=== PATIENT | male | born 1995 | race Two or more races ===

== ENCOUNTER 2016-09-04 14:26 | Emergency (ER) | payer OTHER ==
[~2016-09-04] VITALS: Ht 185.4 cm; Wt 66.8 kg
[2016-09-04 16:38] VITALS: BP 115/87
== END 2016-09-04 16:45 | disposition home or self-care (01) ==
LOC: EMS 14:29
DX: H61.21 Impacted cerumen, right ear (principal)
CPT/HCPCS: 99282

== ENCOUNTER 2016-12-14 16:22 | Emergency (ER) | payer OTHER ==
[~2016-12-14] VITALS: Ht 185.4 cm; Wt 65.9 kg
[2016-12-14 16:36] VITALS: BP 118/75
[2016-12-14] MEDS ORDERED: HYDROGEN PEROXIDE 118 ML SOLUTION TP ONE (17:00)
== END 2016-12-14 17:34 | disposition home or self-care (01) ==
LOC: EMS 16:25
DX: H61.21 Impacted cerumen, right ear (principal)
CPT/HCPCS: 69209; 99282

== ENCOUNTER → 2018-05-31 | Emergency (ER) | payer MEDICAID, OTHER ==
[~2018-05-31] VITALS: Ht 188 cm; Wt 66.8 kg
[~2018-05-31] MED LIST: FLUORESCEIN SODIUM 1 MG STRIP ONE; PROPARACAINE HCL 0.5% 15 ML OPHTHALMIC SOLUTION ONE
[2018-05-31 13:45] VITALS: BP 138/93
== END | disposition home or self-care (01) ==
LOC: EMS 13:41
DX: H43.392 Other vitreous opacities, left eye (principal)

== ENCOUNTER 2019-03-02 18:34 | Emergency (ER) | payer MEDICAID ==
[~2019-03-02] VITALS: Ht 177.8 cm; Wt 68.2 kg
[2019-03-02] MEDS ORDERED: IBUPROFEN 800 MG TABLET PO ONE (19:45)
[2019-03-02] MEDS ORDERED: AMOX TR/POT CLAV 875 MG/125 MG TABLET PO ONE (19:45)
[2019-03-02 20:35] VITALS: BP 148/79
== END 2019-03-02 20:40 | disposition home or self-care (01) ==
LOC: EMS 19:16
DX: H66.91 Otitis media, unspecified, right ear (principal)

== ENCOUNTER 2021-01-16 14:15 | Emergency (ER) | payer MEDICAID ==
[~2021-01-16] VITALS: Ht 185.4 cm; Wt 67.3 kg
[2021-01-16] MEDS ORDERED: ACETIC ACID 2% 15 ML OTIC SOLUTION AD ONE (15:15)
[2021-01-16 16:30] VITALS: BP 122/68
== END 2021-01-16 16:36 | disposition home or self-care (01) ==
LOC: EMS 14:15
DX: H60.91 Unspecified otitis externa, right ear (principal); H73.91 Unspecified disorder of tympanic membrane, right ear
CPT/HCPCS: 69209; 99282; 99283